=== PATIENT | female | born 1970 | race Caucasian/White ===

== ENCOUNTER → 2017-09-29 16:27 | Outpatient (CLI) | payer OTHER, SELFPAY ==
[2017-09-29 18:06] LABS: Progesterone Level 0.09 ng/mL (See Comment)
[2017-09-29 18:08] LABS: Estradiol 12.4 pg/mL; Free T3 2.9 pg/mL (2.18-3.98); T4 Free Direct 1.04 ng/dL (0.76-1.46); Thyroid Stim Hormone (TSH) 1.74 uIU/mL (0.358-3.74)
== END ==
PROVIDERS: Family Provider Specialist; PCP Specialist; Visit Provider Specialist
DX: N95.1 Menopausal and female climacteric states (principal); E03.8 Other specified hypothyroidism; R53.81 Other malaise
CPT/HCPCS: 36415; 82627; 82670; 84144; 84403; 84439; 84443; 84481; 82626